=== PATIENT | male | born 1930 | race Caucasian/White ===

== ENCOUNTER 2019-05-12 07:22 | Emergency (ER) | payer MEDICARE ==
[~2019-05-12] VITALS: Ht 170.2 cm; Wt 70.3 kg
[~2019-05-12 07:22] MED LIST: ACETAMINOPHEN325 M1 PO; ASPIRIN EC81 M1; FISH OIL 1,0001 EAC5; MECLIZINE 25 MG25 M1 PO; METFORMIN HCL1000 M1; MINOCIN100 MG PO; PLAVIX 75 MG TA75 M1; TRANDOLAPRIL4 MG; WELCHOL 625 MG625 M1; WELCHOL 625 MG625 M1 PO
[2019-05-12] MEDS ORDERED: NORCO 5-325 TA1 EAC1 PO (09:52)
[2019-05-12 10:24] VITALS: BP 126/46
== END 2019-05-12 10:28 | disposition home or self-care (01) ==
LOC: M.ERS 07:22
DX: S52.292A Other fracture of shaft of left ulna, initial encounter for closed fracture (principal); R07.81 Pleurodynia; I10 Essential (primary) hypertension; E11.9 Type 2 diabetes mellitus without complications; W18.39XA Other fall on same level, initial encounter; Y93.89 Activity, other specified; Y92.89 Other specified places as the place of occurrence of the external cause; Y99.8 Other external cause status